=== PATIENT | male | born 1995 | race Caucasian/White ===

== ENCOUNTER 2022-11-13 20:40 | Emergency (ER) | payer SELFPAY ==
[2022-11-13 20:38] LABS: BASOPHILS ABSOLUTE AUTO 0.05 K/uL (0.00-0.20); BASOPHILS PERCENT AUTO 0.7 % (0.0-2.0); EOSINOPHILS ABSOLUTE AUTO 0.02 K/uL (0.00-0.50); EOSINOPHILS PERCENT AUTO 0.3 % (0.0-5.0); HEMATOCRIT 42.6 % (39.0-49.0); HEMOGLOBIN 14.6 g/dL (13.1-16.8); LYMPHOCYTES ABSOLUTE AUTO 1.26 K/uL (0.50-3.50); LYMPHOCYTES PERCENT AUTO 16.7 % (10.0-50.0); MEAN CORPUSCULAR HEMOGLOBIN 30.4 pg (28.2-33.3); MEAN CORPUSCULAR HGB CONC 34.3 g/dL (31.7-36.0); MEAN CORPUSCULAR VOLUME 88.8 fL (84.0-98.0); MONOCYTES ABSOLUTE AUTO 0.58 K/uL (0.00-1.00); MONOCYTES PERCENT AUTO 7.7 % (2.0-14.0); NEUTROPHILS ABSOLUTE AUTO 5.63 K/uL (1.40-7.00); NEUTROPHILS PERCENT AUTO 74.6 % (45.0-80.0); PLATELET COUNT,PLT 225 K/uL (150-350); WHITE BLOOD CELL COUNT,WBC 7.5 K/uL (4.0-10.2)
[~2022-11-13 20:40] MED LIST: Iopamidol 612 MG/ML 100 ML Bottle IVPUSH ONE
[2022-11-13 20:56] LABS: ALANINE AMINOTRANSFERASE,ALT 28 U/L (12-78); ALBUMIN 4.3 g/dL (3.4-5.0); ALKALINE PHOSPHATASE 79 IU/L (46-116); ANION GAP 10.4 meq/L (7-15); ASPARTATE AMNIOTRANSFERASE,AST 22 U/L (15-37); BILIRUBIN TOTAL 1.5 mg/dL (0.2-1.0); BLOOD UREA NITROGEN,BUN 13 mg/dL (7-18); CALCIUM 8.6 mg/dL (8.5-10.1); CARBON DIOXIDE,CO2 27.6 mmol/L (21.0-32.0); CHLORIDE,CL 104 mmol/L (98-107); CREATINE KINASE,CK 414 U/L (26-308); CREATININE 1.34 mg/dL (0.51-1.17); GLUCOSE RANDOM 97 mg/dL (70-99); LIPASE 13 U/L (16-77); PROTEIN TOTAL,TP 7.4 g/dL (6.4-8.2); SODIUM,NA 142 mmol/L (136-145)
[2022-11-13 20:58] LABS: ESTIMATED GFR 75 mL/min (>=60); INR 1.1; PROTHROMBIN TIME 11.2 SEC (9.0-11.1)
[2022-11-13] MEDS ORDERED: Sodium Chloride 0.9% 10 ML Syringe FLUSH PRN (21:10)
[2022-11-13] MEDS ORDERED: Sodium Chloride 0.9% 1,000 ML IV ONE (21:10)
[2022-11-13] MEDS ORDERED: Naloxone 0.4 MG/ML SDV IVPUSH PRN (21:47)
[2022-11-13] MEDS ORDERED: fentaNYL 50 MCG/ML SDV IVPUSH ONE (21:47)
[2022-11-13] MEDS ORDERED: Sodium Chloride 0.9% 1,000 ML IV SCH (22:15)
== END 2022-11-13 23:24 ==
LOC: LL.ED 20:40
DX: S42.022A Displaced fracture of shaft of left clavicle, initial encounter for closed fracture (principal); Z72.0 Tobacco use; V80.010A Animal-rider injured by fall from or being thrown from horse in noncollision accident, initial encounter; Y93.52 Activity, horseback riding
CPT/HCPCS: 36415; 72125; 73060-LT; 74177; 80053; 82550; 83690; 85025; 85610; 93005; 93010; 96361; 96374; 99284; 99285-25; J3010; J7030; Q9967